=== PATIENT | male | born 1950 | race Asian ===

== ENCOUNTER 2021-02-13 03:17 | Inpatient (IN) | payer MEDICARE ==
[~2021-02-13] VITALS: Ht 165.1 cm; Wt 91.2 kg
[~2021-02-13 03:17] MED LIST: AMIO200T68 PO; APIX5TAB PO; ASPI-1450 PO; ATOR20TA86 PO; FURO20 PO; KCL10IV PO; LOSA50TA37 PO; METF-960 PO; METO-558 PO; NIFE30TA5 PO; SITA50 PO
[2021-02-13 03:59] LABS: COVID AG,FIA SOURCE NASOPHARYNGEAL
[2021-02-13 04:03] LABS: BASOPHILS % (AUTO) 1.1 % (0.0-2.0); EOSINOPHILS % (AUTO) 3.1 % (1.0-6.0); HEMATOCRIT 42.7 % (41-53); HEMOGLOBIN 14.1 g/dL (13.5-17.5); LYMPHOCYTES # (AUTO) 3.4 K/uL (1.0-4.8); LYMPHOCYTES % (AUTO) 31.3 % (22.0-44.0); MEAN CORPUSCULAR HEMOGLOBIN 30.4 pg (26.0-34.0); MEAN CORPUSCULAR HGB CONC 32.9 G/dL (31.0-37.0); MEAN CORPUSCULAR VOLUME 92 fL (80-100); MONOCYTES # (AUTO) 0.5 K/uL (0.1-1.0); MONOCYTES % (AUTO) 4.6 % (2.0-9.0); NEUTROPHILS # (AUTO) 6.6 K/uL (1.8-7.7); NEUTROPHILS % (AUTO) 59.9 % (40.0-70.0); PLATELET COUNT (AUTO) 203 K/uL (150-450); RED BLOOD CELL COUNT(AUTO) 4.63 MIL/uL (4.50-5.90); RED CELL DISTRIBUTION WIDTH 14.8 % (11.5-14.5)
[2021-02-13 04:11] LABS: CALCIUM, TOTAL 9.1 mg/dL (8.8-10.5); CREATININE 2.23 mg/dL (0.60-1.30); POTASSIUM 4.7 mmol/L (3.5-5.1)
[2021-02-13 04:16] LABS: ALBUMIN 3.8 g/dL (3.4-5.0); BILIRUBIN,TOTAL 0.5 mg/dL (0.1-1.0); TOTAL PROTEIN, SERUM 7.6 g/dL (6.4-8.2)
[2021-02-13] MEDS ORDERED: ENALAPRILAT DIHYDRATE 2.5 MG/2 ML VIAL IVP ONE (04:30)
[2021-02-13] MEDS ORDERED: NITROGLYCERIN 2% (1 GM=INCH) PACKET TP ONE (04:30)
[2021-02-13] MEDS ORDERED: FUROSEMIDE 40 MG/4 ML VIAL IVP ONE (04:30)
[2021-02-13] MEDS ORDERED: DILTIAZEM HCL 5 MG/ML 5 ML VIAL IVP ONE (05:15)
[2021-02-13] MEDS ORDERED: DIGOXIN 250 MCG/ML 2 ML AMP IVP ONE (05:15)
[2021-02-13] MEDS ORDERED: CALCIUM GLUCONATE 100 MG/ML 10 ML IVP ONE (05:15)
[2021-02-13] MEDS ORDERED: BUMETANIDE 0.25 MG/ML 4 ML VIAL IVP ONE (06:00)
[2021-02-13] MEDS ORDERED: 0.9% SODIUM CHLORIDE 10 ML SYRINGE IVP PRN (06:15)
[2021-02-13] MEDS ORDERED: ONDANSETRON HCL 4 MG/2 ML VIAL IVP PRN (06:15)
[2021-02-13] MEDS ORDERED: ACETAMINOPHEN 325 MG TABLET PO PRN ×2 (06:15→09:30)
[2021-02-13] MEDS: OXYGEN THERAPY IH SCH ×2 (08:42→20:21)
[2021-02-13] MEDS ORDERED: DEXTROSE 50%-WATER 25 GM/50 ML SYRINGE IVP PRN (09:45)
[2021-02-13] MEDS ORDERED: INSULIN LISPRO 100 UNITS/ML SQ PRN (09:45)
[2021-02-13] MEDS: METOPROLOL SUCCINATE 50 MG ER TABLET PO SCH (10:09)
[2021-02-13 12:39] LABS: GLUCOSE,POINT OF CARE 107 MG/DL (70-110)
[2021-02-13 16:58] VITALS: BP 180/122
[2021-02-13] MEDS ORDERED: CloNIDine HCL 0.1 MG TABLET PO PRN (17:30)
[2021-02-13 19:31] VITALS: BP 154/99
[2021-02-13] MEDS: APIXABAN 2.5 MG TABLET PO SCH (20:16)
[2021-02-13] MEDS: FUROSEMIDE 20 MG/2 ML VIAL IVP SCH (20:16)
[2021-02-13] MEDS: DOCUSATE SODIUM 100 MG CAPSULE PO SCH (20:16)
[2021-02-13] MEDS: LOSARTAN POTASSIUM 25 MG TABLET PO SCH (20:16)
[2021-02-13 21:47] LABS: GLUCOMETER DEV NAME(LOC) 5S.2B; GLUCOSE,POINT OF CARE 168 MG/DL (70-110)
[2021-02-14 04:46] VITALS: BP 155/89
[2021-02-14 06:52] LABS: CALCIUM, TOTAL 8.4 mg/dL (8.8-10.5); CREATININE 1.66 mg/dL (0.60-1.30); POTASSIUM 3.5 mmol/L (3.5-5.1)
[2021-02-14 07:36] VITALS: BP 145/96
[2021-02-14] MEDS: OXYGEN THERAPY IH SCH (08:00)
[2021-02-14] MEDS: METOPROLOL SUCCINATE 50 MG ER TABLET PO SCH (08:31)
[2021-02-14] MEDS: APIXABAN 2.5 MG TABLET PO SCH (08:33)
[2021-02-14] MEDS: LOSARTAN POTASSIUM 25 MG TABLET PO SCH (08:33)
[2021-02-14] MEDS: FUROSEMIDE 20 MG/2 ML VIAL IVP SCH (08:35)
[2021-02-14] MEDS: DOCUSATE SODIUM 100 MG CAPSULE PO SCH (08:36)
[2021-02-14] MEDS ORDERED: AMIODARONE HCL 200 MG TABLET PO SCH (09:00)
[2021-02-14] MEDS ORDERED: FAMOTIDINE 20 MG TABLET PO SCH (09:00)
[2021-02-14 11:24] VITALS: BP 137/72
[2021-02-14] MEDS ORDERED: METO-391 PO (14:37)
[2021-02-14] MEDS ORDERED: SITA100 PO (14:37)
[2021-02-14] MEDS ORDERED: FURO20 PO (14:37)
[2021-02-14] MEDS ORDERED: LOSA25TA2 PO (14:37)
[2021-02-14 15:51] VITALS: BP 144/94
[2021-02-14 20:55] LABS: GLUCOMETER DEV NAME(LOC) 5S.2B; GLUCOSE,POINT OF CARE 126 MG/DL (70-110)
[2021-02-14 23:56] LABS: GLUCOMETER DEV NAME(LOC) 5N.3; GLUCOSE,POINT OF CARE 127 MG/DL (70-110)
[2021-02-14 23:56] LABS: GLUCOMETER DEV NAME(LOC) 5N.3; GLUCOSE,POINT OF CARE 103 MG/DL (70-110)
[2021-02-14 23:56] LABS: GLUCOMETER DEV NAME(LOC) 5N.3; GLUCOSE,POINT OF CARE 126 MG/DL (70-110)
== END 2021-02-14 18:30 | disposition home or self-care (01) | DRG 291 ==
LOC: EMS 03:22 → 5S 15:45
PROVIDERS: ADMIT Internal Medicine; ATTEND Internal Medicine
PROC: 5A09357 Assistance with Respiratory Ventilation, Less than 24 Consecutive Hours, Continuous Positive Airway Pressure (ICD-10-PCS; principal; 2021-02-13)
DX: I11.0 Hypertensive heart disease with heart failure (principal); J96.91 Respiratory failure, unspecified with hypoxia; N17.9 Acute kidney failure, unspecified; I48.20 Chronic atrial fibrillation, unspecified; I50.33 Acute on chronic diastolic (congestive) heart failure; E66.01 Morbid (severe) obesity due to excess calories; E11.9 Type 2 diabetes mellitus without complications; Z20.822 Contact with and (suspected) exposure to COVID-19; E78.00 Pure hypercholesterolemia, unspecified; Z79.899 Other long term (current) drug therapy; R00.0 Tachycardia, unspecified; Z82.49 Family history of ischemic heart disease and other diseases of the circulatory system; Z79.82 Long term (current) use of aspirin; Z68.33 Body mass index [BMI] 33.0-33.9, adult
CPT/HCPCS: 71045; 80048; 80053; 82962; 83880; 84484; 85025; 93005; 94660; 99291; J0610; J1160; J1940; J3490; 36415-L1; 36415-TC

== ENCOUNTER 2021-02-20 18:52 | Emergency (ER) | payer MEDICARE, OTHER ==
[~2021-02-20] VITALS: Ht 165.1 cm; Wt 92.7 kg
[~2021-02-20 18:52] MED LIST changes: +LOSA25TA2 PO; -LOSA50TA37 PO; -METF-960 PO; +METO-391 PO; +SITA100 PO; -SITA50 PO
[2021-02-20] MEDS ORDERED: NIFEdipine 30 MG ER TABLET PO ONE (23:15)
[2021-02-20 23:39] VITALS: BP 191/132
== END 2021-02-20 23:46 | disposition home or self-care (01) ==
LOC: EMS 18:54
DX: I11.0 Hypertensive heart disease with heart failure (principal); I50.9 Heart failure, unspecified; M79.89 Other specified soft tissue disorders; I48.91 Unspecified atrial fibrillation; E78.00 Pure hypercholesterolemia, unspecified; E11.9 Type 2 diabetes mellitus without complications; Z76.0 Encounter for issue of repeat prescription; Z79.899 Other long term (current) drug therapy; Z79.82 Long term (current) use of aspirin
CPT/HCPCS: 82962; 99283